=== PATIENT | female | born 1975 | race Caucasian/White ===

== ENCOUNTER → 2020-07-09 | Outpatient (CLI) | payer BC, OTHER | LOC: HEART 5 09:30 | DX: R06.02 Shortness of breath (principal); I51.7 Cardiomegaly | CPT/HCPCS: 93306 ==

== ENCOUNTER → 2021-01-24 | Outpatient (CLI) | payer BC | LOC: KOH-I 08:40 | DX: R51.9 Headache, unspecified (principal); H53.9 Unspecified visual disturbance; E66.9 Obesity, unspecified; N92.6 Irregular menstruation, unspecified; M54.2 Cervicalgia | CPT/HCPCS: 70551 ==